=== PATIENT | female | born 1970 | race American Indian/Alaskan Native ===

== ENCOUNTER 2018-11-21 12:32 | Emergency (ER) | payer SELFPAY ==
[2018-11-21] MEDS ORDERED: CATAPRES PO ONE (12:57)
--- NOTE | 2018-11-21 12:58 | Emergency Department Report ---
Blank Doc - Documentation Documentation: 48 yo female with no known pmh presents with grimaldo with blurry vision now resolved BP 208/104 un diagnosed no trauma, ijury fall meds, labs and head CT ordered reevaluate
[2018-11-21 13:38] LABS: Basophils # (Auto) 0.1 K/mm3 (0.0-0.1); Basophils % (Auto) 0.8 % (0.0-1.8); Eosinophils % (Auto) 0.3 % (0.0-4.3); Hematocrit 37.4 % (30.3-42.9); Hemoglobin 12.4 gm/dl (10.1-14.3); Lymphocytes # (Auto) 1.5 K/mm3 (1.2-5.4); Lymphocytes % (Auto) 20.5 % (13.4-35.0); Mean Corpuscular HGB Conc 33 % (30-34); Mean Corpuscular Volume 86 fl (79-97); Monocytes # (Auto) 0.4 K/mm3 (0.0-0.8); Monocytes % (Auto) 5.2 % (0.0-7.3); Platelet Count 392 K/mm3 (140-440); Red Blood Count 4.37 M/mm3 (3.65-5.03); Red Cell Distribution Width 14.3 % (13.2-15.2)
--- NOTE | 2018-11-21 13:48 | Emergency Department Report ---
ED Headache HPI - General Chief Complaint: Headache Stated Complaint: HEADACHE Time Seen by Provider: 11/21/18 12:53 - History of Present Illness Initial Comments: Patient is a 48-year-old female withpast history who is presenting with very mild headache. Headache present for the past 3 days. Patient on arrival had elevated blood pressure. Patient is denying chest pain shortness of breath or focal neurological deficit. Patient has no decreased urination. Patient does have family history of hypertension but no diagnosis was self. Allergies/Adverse Reactions: Allergies No Known Allergies Allergy (Unverified 11/21/18 12:56) Home Medications: Ambulatory Orders Amlodipine Besylate [Norvasc] 5 mg PO DAILY #30 tablet 11/21/18 ED Review of Systems ROS: Stated complaint: HEADACHE Other details as noted in HPI Comment: All other systems reviewed and negative ED Past Medical Hx - Social History Smoking Status: Never Smoker Substance Use Type: None - Medications Home Medications: Home Medications Medication Instructions Recorded Confirmed Last Taken Type Amlodipine Besylate [Norvasc] 5 mg PO DAILY #30 tablet 11/21/18 Unknown Rx ED Physical Exam - General Limitations: No Limitations General appearance: alert, in no apparent distress - Head Head exam: Present: atraumatic, normocephalic - Eye Eye exam: Present: normal appearance - ENT ENT exam: Present: mucous membranes moist - Neck Neck exam: Present: normal inspection - Respiratory Respiratory exam: Present: normal lung sounds bilaterally. Absent: respiratory distress, wheezes, rales, rhonchi, chest wall tenderness - Cardiovascular Cardiovascular Exam: Present: regular rate, normal rhythm, normal heart sounds. Absent: systolic murmur, diastolic murmur, rubs, gallop - GI/Abdominal GI/Abdominal exam: Present: soft, normal bowel sounds. Absent: distended, tenderness, guarding - Extremities Exam Extremities exam: Present: normal inspection, tenderness - Back Exam Back exam: Present: normal inspection - Neurological Exam Neurological exam: Present: alert, oriented X3, CN II-XII intact, normal gait. Absent: motor sensory deficit - Psychiatric Psychiatric exam: Present: normal affect, normal mood - Skin Skin exam: Present: warm, dry, intact, normal color. Absent: rash ED Course Vital Signs 11/21/18 11/21/18 11/21/18 12:54 13:44 15:18 Temperature 97.8 F Pulse Rate 96 H 90 93 H Respiratory 16 Rate Blood Pressure 208/104 202/102 Blood Pressure 160/100 [Right] O2 Sat by Pulse 99 Oximetry - Reevaluation(s) Reevaluation #1: 11/21/18 13:48 The patient has no neurological deficits at this time. CT of the head is not warranted. Patient was given 0.2 Catapres with elevated blood pressure and the patient will be reassessed. ED Medical Decision Making - Lab Data Result diagrams: 11/21/18 13:14 11/21/18 13:14 - Medical Decision Making Patient blood pressure responded well to Catapres. Patient will be started on Norvasc 5 mg. Patient be given primary care for follow-up. Critical care attestation.: If time is entered above; I have spent that time in minutes in the direct care of this critically ill patient, excluding procedure time. ED Disposition Clinical Impression: Hypertensive urgency Disposition: DC-01 TO HOME OR SELFCARE Is pt being admited?: No Does the pt Need Aspirin: No Condition: Stable Instructions: Hypertension (ED) Time of Disposition: 15:23
[2018-11-21 13:59] LABS: Alanine Aminotransferase 6 units/L (7-56); Albumin 4.1 g/dL (3.9-5); BUN/Creatinine Ratio 11; Blood Urea Nitrogen 9 mg/dL (7-17); Hemolysis Index 3
[2018-11-21 15:19] VITALS: BP 160/100
== END 2018-11-21 15:35 | disposition home or self-care (01) ==
LOC: EDBD → ED 12:32
DX: I16.0 Hypertensive urgency (principal)
CPT/HCPCS: 36415; 80053; 85025